=== PATIENT | male | born 1980 | race African-American/Black ===

== ENCOUNTER 2018-05-10 12:40 | Observation (INO) | payer SELFPAY ==
[2018-05-10] VITALS (10 sets, daily range): BP systolic 101–141; BP diastolic 50–78; Ht 193 cm; Wt 73.0 kg
[~2018-05-10] VITALS: Ht 193 cm; Wt 73.0 kg
[2018-05-10 13:29] LABS: BASOPHILS 0.2 % (0-2); EOSINOPHILS 1.7 % (0-7); HEMATOCRIT 39.4 % (42.0-54.0); HEMOGLOBIN 13.5 g/dL (13.5-17.5); IMMATURE GRANULOCYTES 0.2 % (0-5); LYMPHOCYTES 39.8 % (15-50); MCHC 34.3 g/dL (31.0-37.0); MCV 93.4 fL (80.0-100.0); MEAN PLATELET VOLUME 10.7 fL (7.4-10.4); NEUTROPHILS 49.1 % (40-80); PLATELET COUNT 140 10x3/uL (130-400); RBC 4.22 10x6/uL (4.20-6.10); RDW 13.1 % (11.5-14.5); WBC 5.3 10x3/uL (4.8-10.8)
[2018-05-10 13:30] LABS: UDS - AMPHET NEGATIVE QUAL (NEGATIVE); UDS - BARB NEGATIVE QUAL (NEGATIVE); UDS - BENZO NEGATIVE QUAL (NEGATIVE); UDS - COCAINE NEGATIVE QUAL (NEGATIVE); UDS - OPIATE NEGATIVE QUAL (NEGATIVE); UDS - PCP NEGATIVE QUAL (NEGATIVE); UDS - THC POSITIVE QUAL (NEGATIVE)
[2018-05-10 13:32] LABS: APPEARANCE CLEAR (CLEAR); BILIRUBIN NEGATIVE (NEGATIVE); COLOR YELLOW (YELLOW); GLUCOSE NEGATIVE (NEGATIVE); KETONE NEGATIVE (NEGATIVE); NITRITE NEGATIVE (NEGATIVE); PROTEIN NEGATIVE (NEGATIVE); UROBILINOGEN NORMAL (NORMAL)
[2018-05-10 13:33] LABS: BACTERIA NONE SEEN /hpf (NONE SEEN); EPITHELIAL CELLS 0-5 /hpf (0-5); RED CELLS - URINE NONE SEEN /hpf (0-5); WHITE CELLS - URINE 0-5 /hpf (0-5)
[2018-05-10 13:35] LABS: ANION GAP 10.6 mmol/L (8-16); BILIRUBIN - TOTAL 0.39 mg/dL (0.2-1.3); CALCIUM 9.5 mg/dL (8.5-10.1); CARBON DIOXIDE 29.3 mmol/L (21.0-32.0); CREATININE - SERUM 1.3 mg/dL (0.6-1.3); POTASSIUM - SERUM 3.9 mmol/L (3.5-5.1); PROTEIN - SERUM 7.5 g/dL (6.4-8.2)
[2018-05-10 13:50] LABS: BILIRUBIN - DIRECT 0.1 mg/dL (0.00-0.30); BILIRUBIN - INDIRECT 0.28 mg/dL (0.00-1.00); BILIRUBIN - TOTAL 0.38 mg/dL (0.2-1.3); PROTEIN - SERUM 7.6 g/dL (6.4-8.2)
[2018-05-10 14:21] LABS: CKMB 1.3 U/L (0.0-3.6); CREATINE KINASE 327 UL (21-232)
[2018-05-10 14:28] LABS: TROPONIN-I < 0.017 ng/mL (0.000-0.060)
== END 2018-05-11 00:03 | disposition left against medical advice (07) ==
LOC: D.ER 12:40 → D.EDHOLD 17:55 → OBSVTIME 18:00 → D.ICU 20:06
PROVIDERS: Family Medicine
DX: T50.902A Poisoning by unspecified drugs, medicaments and biological substances, intentional self-harm, initial encounter (principal); R00.1 Bradycardia, unspecified; Y92.009 Unspecified place in unspecified non-institutional (private) residence as the place of occurrence of the external cause; F17.210 Nicotine dependence, cigarettes, uncomplicated

== ENCOUNTER 2018-06-04 12:23 | Emergency (ER) | payer BC ==
[~2018-06-04] VITALS: Ht 193 cm; Wt 84.1 kg
[2018-06-04 12:26] VITALS: Ht 193 cm; Wt 84.1 kg
[2018-06-04 14:54] VITALS: BP 140/078
== END 2018-06-04 14:56 | disposition home or self-care (01) ==
LOC: D.ER 12:23
DX: B34.9 Viral infection, unspecified (principal); F17.200 Nicotine dependence, unspecified, uncomplicated

== ENCOUNTER 2019-05-20 12:11 | Emergency (ER) | payer BC ==
[~2019-05-20] VITALS: Ht 193 cm; Wt 78.6 kg
[2019-05-20 12:18] VITALS: BP 120/70; Ht 193 cm; Wt 78.6 kg
[2019-05-20] MEDS ORDERED: IBUPROFEN800 MG PO (12:59)
== END 2019-05-20 13:08 | disposition home or self-care (01) ==
LOC: D.ER 12:11
DX: S69.91XA Unspecified injury of right wrist, hand and finger(s), initial encounter (principal); X50.1XXA Overexertion from prolonged static or awkward postures, initial encounter

== ENCOUNTER 2021-01-16 21:09 | Emergency (ER) | payer BC ==
[~2021-01-16] VITALS: Ht 193 cm; Wt 81.8 kg
[~2021-01-16 21:09] MED LIST: IBUPROFEN800 MG PO
[2021-01-16 21:17] VITALS: BP 126/78; Ht 193 cm; Wt 81.8 kg
== END 2021-01-16 21:30 | disposition home or self-care (01) ==
LOC: D.ER 21:09
DX: R55 Syncope and collapse (principal)